=== PATIENT | male | born 1990 | race American Indian/Alaskan Native ===

== ENCOUNTER 2018-07-03 09:18 | Emergency (ER) | payer SELFPAY ==
[2018-07-03 09:28] VITALS: BP 146/80
--- NOTE | 2018-07-03 09:38 | Emergency Department Report ---
ED Recheck HPI - General Chief Complaint: Medical Clearance Stated Complaint: MEDICATION REFILL Time Seen by Provider: 07/03/18 09:32 Source: patient Mode of arrival: Ambulatory Limitations: No Limitations - History of Present Illness Initial Comments: This is a 28-year-old male nontoxic, well nourished in appearance, no acute signs of distress presents to the ED for a medication refill. Patient stated that he is currently out of his albuterol medication. Patient currently denies any wheezing or shortness of breath. Patient denies any fever, chills, nausea, vomiting, chest pain, shortness of breath, headache or stiff neck. Patient is asymptomatic and just wants a refill. Patient denies any allergies. MD Complaint: medication refill request Returns Today for: request for prescription Symptoms Since Prior Visit: no new symptoms Associated Symptoms: none. denies: fever, chills, chest pain, shortness of breath, rash, malaise, nasuea, abdominal pain - Related Data Previous Rx's Medication Instructions Recorded Last Taken Type ALBUTEROL Inhaler(NF) [VENTOLIN 2 puff IH Q4-6H PRN #1 inha 07/03/18 Unknown Rx Inhaler(NF)] Allergies Allergy/AdvReac Type Severity Reaction Status Date / Time No Known Allergies Allergy Unverified 07/03/18 09:20 ED Review of Systems ROS: Stated complaint: MEDICATION REFILL Other details as noted in HPI Constitutional: denies: chills, fever Eyes: denies: eye pain, eye discharge, vision change ENT: denies: ear pain, throat pain Respiratory: denies: cough, shortness of breath, wheezing Cardiovascular: denies: chest pain, palpitations Endocrine: no symptoms reported Gastrointestinal: denies: abdominal pain, nausea, diarrhea Genitourinary: denies: urgency, dysuria Musculoskeletal: denies: back pain, joint swelling, arthralgia Skin: denies: rash, lesions Neurological: denies: headache, weakness, paresthesias Psychiatric: denies: anxiety, depression Hematological/Lymphatic: denies: easy bleeding, easy bruising ED Past Medical Hx - Past Medical History Previous Medical History?: No - Surgical History Past Surgical History?: No - Social History Smoking Status: Never Smoker Substance Use Type: None - Medications Home Medications: Home Medications Medication Instructions Recorded Confirmed Last Taken Type ALBUTEROL Inhaler(NF) [VENTOLIN 2 puff IH Q4-6H PRN #1 inha 07/03/18 Unknown Rx Inhaler(NF)] ED Physical Exam - General Limitations: No Limitations General appearance: alert, in no apparent distress - Head Head exam: Present: atraumatic, normocephalic - Respiratory Respiratory exam: Present: normal lung sounds bilaterally. Absent: respiratory distress, wheezes, rales, rhonchi, stridor, chest wall tenderness, accessory muscle use, decreased breath sounds, prolonged expiratory - Cardiovascular Cardiovascular Exam: Present: regular rate, normal rhythm, normal heart sounds. Absent: irregular rhythm, systolic murmur, diastolic murmur, rubs, gallop - Extremities Exam Extremities exam: Present: normal inspection, full ROM - Back Exam Back exam: Present: normal inspection, full ROM - Neurological Exam Neurological exam: Present: alert, oriented X3 - Psychiatric Psychiatric exam: Present: normal affect, normal mood - Skin Skin exam: Present: warm, dry, intact, normal color. Absent: rash ED Course Vital Signs 07/03/18 09:27 Temperature 98.6 F Pulse Rate 92 H Respiratory 16 Rate Blood Pressure 146/80 O2 Sat by Pulse 98 Oximetry - Reevaluation(s) Reevaluation #1: 07/03/18 09:35 Patient is speaking in full sentences with no signs of distress noted. Critical care attestation.: If time is entered above; I have spent that time in minutes in the direct care of this critically ill patient, excluding procedure time. ED Disposition Clinical Impression: Medication refill Asthma Qualifiers: Asthma severity: mild Asthma persistence: intermittent Asthma complication type: uncomplicated Qualified Code(s): J45.20 - Mild intermittent asthma, uncomplicated Disposition: DC-01 TO HOME OR SELFCARE Is pt being admited?: No Does the pt Need Aspirin: No Condition: Stable Instructions: Asthma (ED) Additional Instructions: Follow-up with a primary care doctor in 3-5 days or if symptoms worsen and continue return to emergency room as soon as possible. Prescriptions: ALBUTEROL Inhaler(NF) [VENTOLIN Inhaler(NF)] 2 puff IH Q4-6H PRN #1 inha PRN Reason: Wheezing Referrals: PRIMARY CARE, [Referring] - 3-5 Days NAM FAJARDO MD [Staff Physician] - 3-5 Days [facility] [Outside] - 3-5 Days [facility] [Outside] - 3-5 Days
== END 2018-07-03 09:40 | disposition home or self-care (01) ==
LOC: ED 09:18
DX: J45.909 Unspecified asthma, uncomplicated (principal); Z76.0 Encounter for issue of repeat prescription

== ENCOUNTER 2020-05-06 10:10 | Emergency (ER) | payer SELFPAY ==
[2020-05-06 10:18] VITALS: BP 131/92
[2020-05-06] MEDS ORDERED: predniSONE 50 MG TAB PO ONE (10:32)
--- NOTE | 2020-05-06 10:41 | Emergency Department Report ---
ED Asthma HPI - General Chief Complaint: Recheck/Abnormal Lab/Rx Stated Complaint: MED REFILL Time Seen by Provider: 05/06/20 10:28 Source: patient Mode of arrival: Ambulatory Limitations: No Limitations - History of Present Illness Initial Comments: 30-year-old -[place] male with a history of asthma comes in requesting a refill on his asthma pump. Patient states that he just finished a nebulizer treatment just prior to arrival. It was noted the patient was mildly tachycardic at 122. Patient reports he does not have a primary care provider and comes to the emergency room for his refills. Patient denies any chest pain reports he has has difficulty breathing. No fever no chills no Covid contacts. MD Complaint: "asthma attack" Onset/Timin Asthma History: history of prior ED visit Severity: moderate Context: ran out of meds Associated Symptoms: none Treatments Prior to Arrival: inhaled bronchodilator - Related Data Current Asthma Therapy: inhaled bronchodilator Previous Rx's Medication Instructions Recorded Last Taken Type ALBUTEROL Inhaler(NF) [VENTOLIN 2 puff IH Q4-6H PRN #1 inha 07/03/18 Unknown Rx Inhaler(NF)] Albuterol Sulfate [Proventil Hfa] 6.7 gm IH TID PRN #1 hfa.[email or web address] 05/06/20 Unknown Rx predniSONE [Deltasone] 40 mg PO QDAY 5 Days #10 tab 05/06/20 Unknown Rx Allergies Allergy/AdvReac Type Severity Reaction Status Date / Time No Known Allergies Allergy Verified 05/06/20 10:15 ED Review of Systems ROS: Stated complaint: MED REFILL Other details as noted in HPI Comment: All other systems reviewed and negative ED Past Medical Hx - Past Medical History Hx Asthma: Yes - Social History Smoking Status: Never Smoker Substance Use Type: None - Medications Home Medications: Home Medications Medication Instructions Recorded Confirmed Last Taken Type ALBUTEROL Inhaler(NF) [VENTOLIN 2 puff IH Q4-6H PRN #1 inha 07/03/18 Unknown Rx Inhaler(NF)] Albuterol Sulfate [Proventil Hfa] 6.7 gm IH TID PRN #1 hfa.aer.ad 05/06/20 Unknown Rx predniSONE [Deltasone] 40 mg PO QDAY 5 Days #10 tab 05/06/20 Unknown Rx ED Physical Exam - General Limitations: No Limitations General appearance: alert - Head Head exam: Present: atraumatic, normocephalic - Eye Eye exam: Present: normal appearance - ENT ENT exam: Present: mucous membranes moist - Neck Neck exam: Present: normal inspection - Respiratory Respiratory exam: Present: wheezes (Right upper quadrant). Absent: respiratory distress, rales, rhonchi, stridor, accessory muscle use, decreased breath sounds, prolonged expiratory - Cardiovascular Cardiovascular Exam: Present: regular rate, normal rhythm. Absent: systolic murmur, diastolic murmur, rubs, gallop - GI/Abdominal GI/Abdominal exam: Present: soft, normal bowel sounds - Rectal Rectal exam: Present: deferred - Extremities Exam Extremities exam: Present: normal inspection - Back Exam Back exam: Present: normal inspection - Neurological Exam Neurological exam: Present: alert, oriented X3 - Psychiatric Psychiatric exam: Present: normal affect, normal mood - Skin Skin exam: Present: warm, dry, intact, normal color. Absent: rash ED Course Vital Signs 05/06/20 10:17 Temperature 98.8 F Pulse Rate 122 H Respiratory 20 Rate Blood Pressure 131/92 O2 Sat by Pulse 98 Oximetry ED Medical Decision Making - Medical Decision Making 30-year-old -[place] male with a history of asthma comes in requesting a refill on his asthma pump. Patient states that he just finished a nebulizer treatment just prior to arrival. It was noted the patient was mildly tachycardic at 122. Patient reports he does not have a primary care provider and comes to the emergency room for his refills. Patient denies any chest pain reports he has has difficulty breathing. No fever no chills no Covid contacts. Patient is able to speak in complete sentences he shows no signs of distress. We will give him a treatment of albuterol prednisone 50 mg and discharge him home with a prescription for an albuterol inhaler and 5 days worth of of prednisone. Patient will be referred to a community provider. Critical care attestation.: If time is entered above; I have spent that time in minutes in the direct care of this critically ill patient, excluding procedure time. ED Disposition Clinical Impression: Medication refill Asthma Qualifiers: Asthma severity: mild Asthma persistence: intermittent Asthma complication type: unspecified Qualified Code(s): J45.20 - Mild intermittent asthma, uncomplicated Disposition: TO HOME OR SELFCARE Is pt being admited?: No Does the pt Need Aspirin: No Condition: Stable Instructions: Asthma (ED), Asthma, Adult, [id number] Additional Instructions: Recommend to use your inhaler as needed. Follow up with a Community provider. Prescriptions: predniSONE [Deltasone] 40 mg PO QDAY 5 Days #10 tab Albuterol Sulfate [Proventil Hfa] 6.7 gm IH TID PRN #1 hfa.aer.ad PRN Reason: Wheezing Referrals: JANEE SUN MD [Staff Physician] - 3-5 Days [facility] [place][Note 3] [Outside] - 3-5 Days Forms: Work/School Release Form(ED)
[2020-05-06] MEDS ORDERED: ALBUTEROL 2.5 MG/3 ML NEBU IH ONE (10:50)
== END 2020-05-06 11:40 | disposition home or self-care (01) ==
LOC: ED 10:10
DX: J45.909 Unspecified asthma, uncomplicated (principal); Z76.0 Encounter for issue of repeat prescription; Z79.899 Other long term (current) drug therapy
CPT/HCPCS: 94640; 99282; J7512; 94644